=== PATIENT | female | born 1985 ===

== ENCOUNTER 2018-05-16 08:06 | Emergency (ER) | payer SELFPAY ==
--- NOTE | 2018-05-16 09:23 | ED PDOC ---
HPI: Abdomen Time Seen by Provider: 05/16/18 08:16 Chief Complaint (Nursing): Abdominal Pain Chief Complaint (Provider): Lower abdominal pain History Per: Patient History/Exam Limitations: no limitations Onset/Duration Of Symptoms: Days (1) Current Symptoms Are (Timing): Still Present Location Of Pain/Discomfort: Suprapubic Associated Symptoms: Urinary Symptoms Additional Complaint(s): 33yo female, , EGA of 10 weeks, comes to ER reporting lower abdominal pain, as well as mild vaginal bleeding since yesterday. Patient states the bleeding has increased today, but denies any large clots or discharge. She also states she has had intermittent burning upon urination since she became . Otherwise, no fever, chills, vomiting, chest pain or shortness of breath. No additional complaints. Patient has not had any care, including US as of today. PMD: Clinic Abnormal Vaginal Bleeding: Yes : 3 Para: 2 Past Medical History Reviewed: Historical Data, Nursing Documentation, Vital Signs Vital Signs: Last Vital Signs Temp 98.5 F 05/16/18 08:12 Pulse 72 05/16/18 08:12 Resp 15 05/16/18 08:12 BP 115/70 05/16/18 08:12 Pulse Ox 100 05/16/18 08:12 - Medical History PMH: No Chronic Diseases - Surgical History Surgical History: No Surg Hx - Family History Family History: States: No Known Family Hx - Allergies Allergies/Adverse Reactions: Allergies Allergy/AdvReac Type Severity Reaction Status Date / Time No Known Allergies Allergy Verified 05/16/18 08:27 Review of Systems ROS Statement: Except As Marked, All Systems Reviewed And Found Negative Constitutional: Negative for: Fever, Chills Cardiovascular: Negative for: Chest Pain Respiratory: Negative for: Shortness of Breath Gastrointestinal: Positive for: Abdominal Pain. Negative for: Nausea, Vomiting, Diarrhea Genitourinary Female: Positive for: Dysuria, Vaginal Bleeding. Negative for: Vaginal Discharge Physical Exam - Reviewed Nursing Documentation Reviewed: Yes Vital Signs Reviewed: Yes - Physical Exam Appears: Positive for: Non-toxic, No Acute Distress Head Exam: Positive for: ATRAUMATIC, NORMAL INSPECTION, NORMOCEPHALIC Skin: Positive for: Normal Color, Warm Eye Exam: Positive for: EOMI, PERRL ENT: Positive for: Other (moist mucosa) Neck: Positive for: Normal, Painless ROM, Supple Cardiovascular/Chest: Positive for: Regular Rate, Rhythm. Negative for: Tachycardia Respiratory: Positive for: Normal Breath Sounds. Negative for: Wheezing Pulses-Radial (L): 2+ Pulses-Radial (R): 2+ Gastrointestinal/Abdominal: Positive for: Soft, Tenderness (diffuse lower abdominal tenderness). Negative for: Mass, Distended, Guarding, Rebound Back: Positive for: Normal Inspection, Other (diffuse paralumbar tenderness). Negative for: L CVA Tenderness, R CVA Tenderness Extremity: Positive for: Normal ROM. Negative for: Pedal Edema, Deformity Neurologic/Psych: Positive for: Alert, Oriented (x 3) - ECG O2 Sat by Pulse Oximetry: 100 (RA) Pulse Ox Interpretation: Normal Medical Decision Making Medical Decision Making: Impression: Vaginal bleeding in Differential: Rule out ectopic , threatened , UTI Plan: -- Labs -- Urine dip -- US OB Scribe Attestation: Documented by Olesya Flores acting as a scribe for Jeanie Shah MD Provider Attestation: All medical record entries made by the Scribe were at my direction and personally dictated by me. I have reviewed the chart and agree that the record accurately reflects my personal performance of the history, physical exam, medical decision making, and the department course for this patient. I have also personally directed, reviewed, and agree with the discharge instructions and disposition. Disposition - Clinical Impression Clinical Impression: Threatened - Patient ED Disposition Is Patient to be Admitted: No Doctor Will See Patient In The: Office Counseled Patient/Family Regarding: Studies Performed, Diagnosis, Need For Followup - Disposition Referrals: [facility] [Outside] Disposition: Routine/Home Disposition Time: 11:57 Condition: GOOD Additional Instructions: DYLAN ASHFORD, thank you for letting us take care of you today. Your provider was Jeanie Shah MD and you were treated for 10 WKS PREG;ABD PAIN. The emergency medical care you received today was directed at your acute symptoms. If you were prescribed any medication, please fill it and take as directed. It may take several days for your symptoms to resolve. Return to the Emergency Department if your symptoms worsen, do not improve, or if you have any other problems. Please contact your doctor or call one of the physicians/clinics you have been r eferred to that are listed on the Patient Visit Information form that is included in your discharge packet. Bring any paperwork you were given at discharge with you along with any medications you are taking to your follow up visit. Our treatment cannot replace ongoing medical care by a primary care provider outside of the emergency department. Thank you for allowing the [facility] team to be part of your care today. If you had an X-Ray or CT scan: A Radiologist will review the ED reading if any change in treatment is needed we will contact you. If you had a blood, urine, or wound culture: It will take several days for the results, if any change in treatment is needed we will contact you. If you had an STI test: It will take 48 hours for the results. Please call after 1 week if you have not heard back. Instructions: Threatened Miscarriage Print Language: SURINAMESE
--- NOTE | 2018-05-16 12:07 | US ---
Date of service: 05/16/2018 PROCEDURE: First trimester ultrasound HISTORY: vaginal bleeding COMPARISON: None TECHNIQUE: Standard protocol for this study/examination. FINDINGS: LMP: 02/27/2018 Prior examinations from the current : None TECHNIQUE: Real-time 2D imaging, duplex and color Doppler. FINDINGS: Cardiac activity: Present Rate: 161 BPM Measurements: Goodwell rump length: 4.43 cm Gestational age based on CRL 11 weeks 2 days Gestational age 10 weeks based on gestational sac measurement 4.47 cm Gestational age derived from LMP: 11 weeks 1 day MILE based on LMP: 12/04/2018 MILE based on biometry: 12/07/2018 Gestational concordance documented Yolk sac identified Cervix: No Cervical abnormalities: Negative examination for cervical dilatation or effacement. Closed cervix measuring 4.37 cm Subchorionic hemorrhage: None UTERUS: 9.1 x 7.5 x 11 cm. ADNEXA: Right: 2.1 x 2.8 x 2.2 cm. Normal Doppler arterial waveform documented. Left: Not visible Fluid in the cul-de-sac: None IMPRESSION: 10 weeks 5 days live intrauterine gestation. Gestational concordance documented.
[2018-05-16 12:19] VITALS: BP 120/65; PULSE 69; RESP 18; TEMP 98; O2SAT 99
== END 2018-05-16 12:19 | disposition home or self-care (01) ==
LOC: H.ER 08:06
DX: O20.9 Hemorrhage in early pregnancy, unspecified (principal); Z3A.10 10 weeks gestation of pregnancy; O20.0 Threatened abortion